=== PATIENT | female | born 1995 | race Caucasian/White ===

== ENCOUNTER → 2019-09-18 | Outpatient (CLI) | payer BC ==
[2019-09-18 16:58] LABS: HEMATOCRIT 39.9 % (37.0-47.0); HEMOGLOBIN 13.4 g/dl (12.5-16.0); MEAN CELL VOLUME 85 fl (80.0-100.0); MEAN CORPUSCULAR HEMOGLOBIN 29 pg (27.0-31.0); MEAN CORPUSCULAR HGB CONC 34 g/dl (33.0-37.0); MEAN PLATELET VOLUME 9.8 fl (7.4-10.4); PLATELET COUNT 212 K/mm3 (130-400); RED BLOOD COUNT 4.68 M/mm3 (4.10-5.30); REDCELL DISTRIBUTION WIDTH-CV 12.5 % (11.5-14.5)
[2019-09-18 17:15] LABS: BILIRUBIN,TOTAL 0.8 mg/dL (0.0-1.0); CALCIUM 8.9 mg/dL (8.4-10.2); CREATININE, serum 1.11 (0.52-1.25); POTASSIUM 3.6 mmol/L (3.4-5.0); TOTAL PROTEIN 7.9 gm/dL (6.4-8.2)
[2019-09-18 17:43] LABS: THYROID STIMULATING HORMONE 2.09 uIU/mL (0.465-4.680)
[2019-09-18 18:00] LABS: BAND 1 % (0-10); EOSINOPHIL 2 % (0-4); LYMPHOCYTE 43 % (20.0-51.0); NEUTROPHILS 43 % (42.0-75.2)
[2019-09-18 18:02] LABS: PLATELET ESTIMATE NORMAL (NORMAL)
== END ==
LOC: COL.LAB 16:31
PROVIDERS: Physician Assistant Medical
DX: R19.7 Diarrhea, unspecified (principal)

== ENCOUNTER 2019-12-11 10:07 | Emergency (ER) | payer SELFPAY ==
[~2019-12-11] VITALS: Ht 172.7 cm; Wt 154.5 kg
[2019-12-11 10:12] VITALS: TEMP 98.1
[2019-12-11 10:49] VITALS: BP 138/86; PULSE 66
== END 2019-12-11 10:49 | disposition home or self-care (01) ==
LOC: COL.ER 10:07
DX: S06.0X0A Concussion without loss of consciousness, initial encounter (principal); S16.1XXA Strain of muscle, fascia and tendon at neck level, initial encounter; S00.93XA Contusion of unspecified part of head, initial encounter; R40.2410 Glasgow coma scale score 13-15, unspecified time; V49.9XXA Car occupant (driver) (passenger) injured in unspecified traffic accident, initial encounter